=== PATIENT | female | born 1985 | race Caucasian/White ===

== ENCOUNTER 2023-03-15 12:16 | Emergency (ER) | payer BC, SELFPAY ==
[2023-03-15 12:20] VITALS: BP 167/82; PULSE 73; RESP 20; TEMP 36.4; O2SAT 97
--- NOTE | 2023-03-15 12:30 | DI.CT_ITS ---
Exam(s) CT HEAD FACIAL WO EXAM: CT HEAD FACIAL WO CLINICAL HISTORY: right orbit trauma. TECHNIQUE: Imaging Protocol: Axial computed tomography images with coronal and sagittal reformatted images were created and reviewed COMPARISON: No exams were available for comparison FINDINGS: CT Head: Ventricles and Extra axial spaces: Normal in size and morphology for the patient's age. Hemorrhage: None. Cerebral parenchyma: Normal. Midline shift: None. Brainstem/Cerebellum: Normal. Calvarium: Normal. Soft Tissues: Unremarkable. CT Face: Facial Bones: No fracture is noted in facial bones. Sinuses and Mastoids: Prior sinus surgery. Mild mucosal thickening. Small mucous retention cyst floo r of left maxillary sinus. Globes, extraocular muscles, optic nerves and retrobulbar fat: Normal. Upper aerodigestive tract: Normal. Mandible and bilateral temporomandibular joints: Intact. IMPRESSION: 1. No acute intracranial process. 2. No acute facial fracture. Prior sinus surgery and mild chronic sinus disease. RADIATION DOSE DELIVERED: Total DLP Total DLP DATA REPOSITORY: All CT scans at this facility are submitted to the National Radiology Data Registry (NRDR) Dose Index Registry (DIR) with the [employer] ([employer]). RADIATION OPTIMIZATION: All CT scans at this facility use at least one of these dose optimization te chniques: automated exposure control; mA and/or kV adjustment per patient size (includes targeted exa ms where dose is matched to clinical indication); or iterative reconstruction.
--- NOTE | 2023-03-15 13:18 | ED.GENADUL_ITS ---
Discharge Plan Disposition Patient Disposition: Home Discharge Details Clinical Impression: Facial trauma Primary Care Provider: Jennifer,Local ED Provider: Esau Calles Home Meds and New Rx's Prescriptions: Continued montelukast 10 mg tablet 10 mg PO QPM cetirizine [24Hour Allergy] 10 mg tablet 10 mg PO DAILY PRN albuterol 90 mcg/actuation aerosol 90 mcg inhalation PRN PRN fluoxetine 20 mg capsule 20 mg PO QAM Discharge Instructions Instructions: Head Injury (ED) Additional Instructions: You may continue to take [id number] pain medication as needed for further discomfort. At this time no fractures or obvious injuries were noted on the CT imaging. If you have any new or significant worsening of symptoms feel free to return the emergency department for reassessment otherwise follow-up with primary care provider if not improving in the next 1 to 2 weeks. Referrals: Primary Care Provider [Outside] Discharge Data Discharge Date/Time-TO BE ENTERED AT DEPARTURE: 03/15/23 13:48 Medical Decision Making Patient presenting to the emergency department for chief complaint of right forehead/orbit injury. Ports 3 months ago she was playing with her child who hit her right forehead/orbit with the back of his head during play. Patient had then mostly recovered but approximately 1 week ago was playing with child again and child jumped up and struck her in the same area. Patient denies any syncope, states brief visual change that is fully resolved and states some associated headache. Physical exam shows tenderness and mild swelling to right upper orbit and forehead otherwise exam is unremarkable. Given patient's significant amount of discomfort and multiple trauma will perform CT imaging of head and facial bones to look for fracture. At this time patient states she took acetaminophen prior to arrival and does not need any further medication but will provide a cold compress. Patient not and went for CT imaging that showed no acute traumatic findings. Did confirm with patient that this was not any sort of abusive situation or assault. Patient was reassured that no emergent findings were noted and that conservative management is appropriate at this time. Patient encouraged to follow-up with primary care provider if not improving or return for new or worsening symptoms. After discussion of diagnosis and plan of care patient has no further needs, questions, or concerns and states clear understanding to return to the emergency department for any worsening symptoms. This documentation was generated using [employer] system, please disregard any oddities of phrase or misspellings. Imaging Data Radiologic Study: Imaging: CT Scan Radiologist's impression: Exam(s) CT HEAD FACIAL WO EXAM: CT HEAD FACIAL WO CLINICAL HISTORY: right orbit trauma. TECHNIQUE: Imaging Protocol: Axial computed tomography images with coronal and sagittal reformatted images were created and reviewed COMPARISON: No exams were available for comparison FINDINGS: CT Head: Ventricles and Extra axial spaces: Normal in size and morphology for the patient's age. Hemorrhage: None. Cerebral parenchyma: Normal. Midline shift: None. Brainstem/Cerebellum: Normal. Calvarium: Normal. Soft Tissues: Unremarkable. CT Face: Facial Bones: No fracture is noted in facial bones. Sinuses and Mastoids: Prior sinus surgery. Mild mucosal thickening. Small mucous retention cyst floor of left maxillary sinus. Globes, extraocular muscles, optic nerves and retrobulbar fat: Normal. Upper aerodigestive tract: Normal. Mandible and bilateral temporomandibular joints: Intact. IMPRESSION: 1. No acute intracranial process. 2. No acute facial fracture. Prior sinus surgery and mild chronic sinus disease. HPI General Mode of arrival: ambulatory . Date/Time Provider Initiated Documentation: 03/15/23 12:25 . Limitations to Documentation: no limitations . Information obtained by: patient and RN notes reviewed . History of Present Illness 37 year old F presents to the emergency department with the chief complaint of Right orbit trauma, described as moderate and severe, and is localized to the face and right. Patient started experiencing this month(s) and it has been constant. No relieving factors improve symptom(s), Patient notes no other symptoms.. Patient did receive the following treatments prior to arrival, other (Acetaminophen) Related Data Home Medications Medication Instructions Recorded Confirmed albuterol 90 mcg/actuation aerosol 90 mcg inhalation PRN PRN 03/15/23 03/15/23 inhaler cetirizine 10 mg tablet (24Hour 10 mg PO DAILY PRN 03/15/23 03/15/23 Allergy) fluoxetine 20 mg capsule 20 mg PO QAM 03/15/23 03/15/23 montelukast 10 mg tablet 10 mg PO QPM 03/15/23 03/15/23 Allergies Allergy/AdvReac Type Severity Reaction Status Date / Time No Known Allergies Allergy Unverified 03/15/23 12:23 General Stated Complaint: FacialProb CHANTE: 3 Review of Systems Constitutional Constitutional: Denies fever(s) Eyes Eyes: Reports as per HPI, Denies blind spots, Denies blurry vision and Denies change in vision ENT Ears, Nose, Mouth, and Throat: Reports as per HPI, Denies ear discharge, Reports facial pain and Denies nasal discharge Integumentary/Breasts Skin/Breast: Denies erythema and Reports skin swelling PFSH All Active Problems (Updated 03/15/23 @ 13:34 by Esau Calles NP) Facial trauma (Acute) Anxiety (Chronic) Social History Smoking/Tobacco Use Status: Never Smoking risk assessment performed?: Yes Alcohol Intake: current Substance use type: does not use Do you feel safe at home: Yes Do you feel safe in your relationship?: Yes Exam Const General: cooperative, no acute distress and well groomed Orientation: alert, awake and oriented x3 HENMT Head: normal to inspection, no Gary's sign, no raccoon eyes and no scalp tenderness Ears: hearing grossly normal bilaterally and TM's normal bilaterally Face and sinus: tenderness on the right forehead Mouth: oral mucosae normal and moist mucous membranes Throat: posterior oropharynx normal Eyes Visual Fabian: normal visual fabian by confrontation Alignment and Position: alignment normal Periorbital: periorbital findings abnormal right (Right upper portion of the orbit) periorbital swelling and periorbital tenderness Eyelids: eyelids normal Sclera: sclerae normal Cornea: corneas normal Pupils: PERRL EOM: EOM intact bilaterally Neck Neck: normal visual inspection, full ROM and no meningeal signs Resp Effort & Inspection: normal respiratory effort and able to speak in complete sentences Auscultation: clear to auscultation bilaterally Neuro General: patient alert, patient awake, patient oriented x3, gait normal, tone normal, moves all extremities, CN's II-XI intact bilaterally and not confused Cognition: normal cognition Speech: speech normal Motor: muscle tone normal throughout Course Vital Signs Vital signs: Vital Signs Temperature 36.4 C L 03/15/23 12:20 Pulse 73 03/15/23 12:20 Respiratory Rate 20 03/15/23 12:20 Blood Pressure 167/82 H 03/15/23 12:20 Pulse Oximetry 97 03/15/23 12:20 Temperature 36.4 C L 03/15/23 12:20 Temperature Source Skin 03/15/23 12:20 Pulse 73 03/15/23 12:20 Respiratory Rate 20 03/15/23 12:20 Respiratory Effort Normal 03/15/23 12:33 Blood Pressure 167/82 H 03/15/23 12:20 Blood Pressure Position Sitting 03/15/23 12:20 Pulse Oximetry 97 03/15/23 12:20 Oxygen Delivery Method Room Air 03/15/23 12:20 Oxygen Flow Rate 0 03/15/23 12:20 Pain Level 3 03/15/23 12:33
[2023-03-15 13:46] VITALS: BP 145/88; PULSE 68; RESP 14; O2SAT 98
== END 2023-03-15 13:48 | disposition home or self-care (01) ==
PROVIDERS: Emergency Provider Nurse Practitioner Family
DX: R51.9 Headache, unspecified (principal); S09.93XA Unspecified injury of face, initial encounter; F41.9 Anxiety disorder, unspecified; W50.0XXA Accidental hit or strike by another person, initial encounter
CPT/HCPCS: 99284; 70450; 70486; 99283